=== PATIENT | male | born 2005 | race Caucasian/White ===

== ENCOUNTER 2024-11-13 19:03 | Emergency (ER) | payer OTHER ==
[~2024-11-13] VITALS: Ht 175.3 cm; Wt 88.9 kg
[2024-11-13 19:07] VITALS: BP 133/75; TEMP 101.9; O2SAT 99
[2024-11-13 20:36] LABS: BASO % 0.2 % (0.0-1.0); EOS % 0.1 % (0.0-3.0); HEMATOCRIT 51.3 % (42.0-52.0); HEMOGLOBIN 17.1 g/dl (13.5-17.5); LYMPH # 0.7 10^3/uL (1.5-5.0); MEAN CORPUSCULAR HEMOGLOBIN 29.7 pg (27.0-33.0); MEAN CORPUSCULAR HGB CONC 33.3 g/dl (32.0-36.5); MEAN CORPUSCULAR VOLUME 89.1 fl (80.0-96.0); MONO # 0.8 10^3/uL (0.0-0.8); MONO % 6.7 % (2.0-8.0); NEUTROPHILS # 10.5 10^3/uL (1.5-8.5); NEUTROPHILS % 86.5 % (36.0-66.0); PLATELET COUNT, AUTOMATED 234 10^3/uL (150-450); RED BLOOD COUNT 5.76 10^6/uL (4.30-6.10); WHITE BLOOD COUNT 12.1 10^3/uL (4.0-10.0)
[2024-11-13 21:05] LABS: ALBUMIN 4.1 G/DL (3.2-5.2); BILIRUBIN,DIRECT 0.2 MG/DL (<0.4); BILIRUBIN,TOTAL 0.7 MG/DL (0.3-1.2); CALCIUM LEVEL 9.4 MG/DL (8.5-10.1); CREATININE FOR GFR 1.21 MG/DL (0.70-1.30); GLOMERULAR FILTRATION RATE 87.4 (>60); POTASSIUM SERUM 3.7 MMOL/L (3.5-5.1); TOTAL PROTEIN 8.6 G/DL (5.7-8.2)
== END 2024-11-13 23:05 | disposition left against medical advice (07) ==
LOC: M ED 19:03
DX: Z53.21 Procedure and treatment not carried out due to patient leaving prior to being seen by health care provider (principal)

== ENCOUNTER 2025-02-02 09:26 | Day surgery (SDC) | payer OTHER ==
[~2025-02-02] VITALS: Ht 175.3 cm; Wt 90.8 kg
[~2025-02-02 09:26] MED LIST: EMTR1TAB16 PO; GABA-1171 PO; LORA-1041 PO; RAME8TAB2 PO; SERT25TA21 PO
[2025-02-02] MEDS ORDERED: LR 1,000 ML IV SCH (10:25)
[2025-02-02] MEDS ORDERED: ROCURONIUM BROMIDE 50MG/5ML VIAL As Ordered ONE (11:46)
[2025-02-02] MEDS ORDERED: ONDANSETRON 4MG 2ML VIAL As Ordered ONE (11:46)
[2025-02-02] MEDS ORDERED: dexAMETHasone 4 MG/ML 1 ML VIAL As Ordered ONE (11:46)
[2025-02-02] MEDS ORDERED: SUGAMMADEX SODIUM 500 MG/5 ML VIAL As Ordered ONE (11:46)
[2025-02-02] MEDS ORDERED: LIDOCAINE 2% 100 MG/5 ML SDV (FOR ANES.) As Ordered ONE (11:46)
[2025-02-02] MEDS: MIDAZOLAM INJ 2 MG/2 ML VIAL IV ONE (11:47)
[2025-02-02] MEDS ORDERED: dexmedeTOMIDine (4 MCG/ML) 200 MCG/50 ML BTL As Ordered ONE (11:51)
[2025-02-02] MEDS ORDERED: ACETAMINOPHEN 1000MG/100ML IV BAG As Ordered ONE (13:04)
[2025-02-02] MEDS ORDERED: ONDANSETRON 4MG 2ML VIAL IV PRN (13:40)
[2025-02-02] MEDS ORDERED: MORPHINE 2 MG/ML 1 ML VIAL IV PRN (13:40)
[2025-02-02 14:24] VITALS: BP 126/74; TEMP 97.5; O2SAT 97
== END 2025-02-02 14:58 | disposition home or self-care (01) ==
LOC: M SDC 09:26 → EDUNIT# 12:00 → M SDC 14:58
PROVIDERS: ATTEND Otolaryngology
DX: J35.03 Chronic tonsillitis and adenoiditis (principal); J35.8 Other chronic diseases of tonsils and adenoids; F41.9 Anxiety disorder, unspecified; F32.A Depression, unspecified; Z79.899 Other long term (current) drug therapy
CPT/HCPCS: 42821; 88302; J0131; J0665; J1100; J2250; J2405; J3010